=== PATIENT | female | born 1950 | race Caucasian/White ===

== ENCOUNTER → 2019-07-22 | Outpatient (CLI) | payer MEDICARE ==
[~2019-07-22] MED LIST: BARIUM for suspension 96% w/w (Vanilla Silq Medium Density) PO ONE; BARIUM for suspension 98% w/w (Vanilla Silq High Density) PO ONE; HOLD METFORMIN - RECEIVED CONTRAST 20 ML VIAL IV SCH; IOHEXOL 350 MG/ML 100 ML (OMNIPAQUE 350) VIAL IV ONE; NS 100 ML (IVPB) BAG IV ONE
[2019-07-22 07:55] LABS: CREATININE SERUM 0.81 MG/DL (0.60-1.30); GFR ESTIMATED > 60
[2019-07-22 07:56] LABS: BUN/CREATININE RATIO 27
--- NOTE | 2019-07-22 09:08 | Diagnostic Imaging Report ---
CLINICAL INDICATION: For 2 years, the patient has felt like something is in throat. Dysphagia. EXAM: Axial CT scan of the neck soft tissues was performed with 75 mL of Omnipaque 350 IV contrast. Coronal and sagittal reformatted images were created. Auto Exposure Controls were utilized during the CT exam to meet ALARA standards for radiation dose reduction. COMPARISON: None. FINDINGS: There is an area of soft tissue fullness in the right vallecular region which may represent prominent posterior lingual soft tissue. There is also a 2 mm area of focal calcification within the region. This area measures roughly 4 mm x 6 mm x 13 mm (AP x Trans x CC) and is best seen on axial series 2, image 45 and sagittal sequence series 602, image 34. It is noted that the bilateral cervical ICA extends posterior to the hypopharyngeal soft tissue and slightly impresses upon the right hypopharyngeal region. This is a normal anatomical variation. Otherwise, the nasopharynx, oropharynx, hypopharynx, and laryngeal soft tissue structures are unremarkable. There is no lymphadenopathy. The salivary glands and thyroid gland are unremarkable as visualized. There is no neck soft tissue fluid collection or fat stranding. The visualized portions of the oral cavity, tongue, and sublingual and submandibular regions are unremarkable. The visualized upper lung flores are clear. The visualized portions of the intracranial structures, orbits, and globes are unremarkable. The visualized paranasal sinuses and mastoid air cells are clear. There is multilevel cervical spine degenerative disease with hypertrophic vertebral body spurs and facet arthropathy as well as suggestion of diffuse disc bulge. There is severe right C4-C5 neural foramen narrowing. IMPRESSION: 1. There is a small area of soft tissue fullness in the right vallecular region which may represent prominent posterior lingual soft tissue. There is a focal calcification seen within this area. This is described above. There is no associated significant encroachment upon the aerodigestive tract. ENT consultation with direct visualization would better evaluate. 2. The remainder of the neck CT scan is unremarkable for patient's age. 3. There is multilevel cervical spine degenerative disease. Dictated by: Dictated on workstation # [id number]
--- NOTE | 2019-07-22 09:26 | Diagnostic Imaging Report ---
EXAMINATION: Barium swallow esophagram. INDICATION: Difficulty swallowing. COMPARISON: There are no prior studies available for comparison. TECHNIQUE: A double contrast exam was performed. FINDINGS: The patient swallowed the contrast material without difficulty. There was no delay or obstruction to the passage of barium through the esophagus. There was no mass or stricture identified; however, there was a small sliding hiatal hernia. Mild gastroesophageal reflux was noted on one occasion but there was no evidence for esophagitis. A cursory examination of the stomach showed that the stomach had good motility and distensibility. There was a small collection of barium along the superior margin of the gastric antrum. This could be related to an old epithelialized ulcer crater as there does not appear to be any thickening of the gastric rugae in this area to suggest active gastritis. If there is clinical concern regarding an active ulcer, however, then endoscopy would be recommended for further evaluation. The duodenal bulb and proximal small bowel are unremarkable. IMPRESSION: 1. There is a small sliding hiatal hernia with mild gastroesophageal reflux. There was no evidence for esophagitis. 2. There is no mass or stricture identified. 3. The small collection of barium along the superior margin of the gastric antrum is of uncertain etiology. Considerations and recommendations as above. Dictated by: Dictated on workstation # [id number]
== END ==
LOC: RAD 07:18
PROVIDERS: ATTEND Otolaryngology Otolaryngology/Facial Plastic Surgery
DX: R13.10 Dysphagia, unspecified (principal); K44.9 Diaphragmatic hernia without obstruction or gangrene; K21.9 Gastro-esophageal reflux disease without esophagitis; M50.321 Other cervical disc degeneration at C4-C5 level
CPT/HCPCS: 36415; 70491; 74220; 82565; 84520

== ENCOUNTER 2019-10-23 05:37 | Outpatient (RCR) | payer MEDICARE ==
[~2019-10-23] VITALS: Ht 160 cm; Wt 109.0 kg
[~2019-10-23 05:37] MED LIST changes: -BARIUM for suspension 96% w/w (Vanilla Silq Medium Density) PO ONE; -BARIUM for suspension 98% w/w (Vanilla Silq High Density) PO ONE; -HOLD METFORMIN - RECEIVED CONTRAST 20 ML VIAL IV SCH; +HYDR12.56 PO; -IOHEXOL 350 MG/ML 100 ML (OMNIPAQUE 350) VIAL IV ONE; +LEVO50TA6 PO; -NS 100 ML (IVPB) BAG IV ONE; +PARO40TA PO
[2019-10-27] MEDS ORDERED: PANT40TA2 PO (10:08)
== END 2019-10-23 10:37 | disposition home or self-care (01) ==
LOC: PREOP 05:37
PROVIDERS: ATTEND Surgery
DX: Z01.818 Encounter for other preprocedural examination (principal); Z01.812 Encounter for preprocedural laboratory examination; Z12.11 Encounter for screening for malignant neoplasm of colon; K63.5 Polyp of colon; R13.10 Dysphagia, unspecified; Z20.828 Contact with and (suspected) exposure to other viral communicable diseases
CPT/HCPCS: 87635

== ENCOUNTER 2019-12-01 14:27 | Outpatient (RCR) | payer MEDICARE ==
[~2019-12-01 14:27] MED LIST changes: +PANT40TA2 PO
== END 2020-02-29 | disposition home or self-care (01) ==
LOC: LAB 14:27
PROVIDERS: ATTEND Surgery
DX: B96.81 Helicobacter pylori [H. pylori] as the cause of diseases classified elsewhere (principal)
CPT/HCPCS: 36415; 87338

== ENCOUNTER 2021-03-06 10:19 | Outpatient (CLI) | payer MEDICARE ==
[~2021-03-06] VITALS: Ht 160 cm; Wt 122.0 kg
[2021-03-06 10:45] VITALS: BP 143/71
[2021-03-06] MEDS ORDERED: BAMLANIVIMAB 700 MG/ETESEVIMAB 1,400 MG IN NS IV ONE ×3 (11:00)
[2021-03-06] MEDS ORDERED: ACETAMINOPHEN 500 MG TAB (TYLENOL) PO PRN (11:00)
[2021-03-06] MEDS ORDERED: ONDANSETRON 4 MG/2 ML (SDV) Z0FRAN IV PRN (11:00)
[2021-03-06] MEDS ORDERED: EPINEPHrine INJECTION 1 MG/ML AMP IM PRN (11:00)
[2021-03-06] MEDS ORDERED: diphenhydrAMINE 50 MG/ML INJ (BENADRYL) IV PRN (11:00)
[2021-03-06 12:24] VITALS: BP 142/57
== END 2021-03-06 12:25 | disposition home or self-care (01) ==
LOC: INFUSION 10:19
PROVIDERS: ATTEND Registered Nurse
DX: U07.1 COVID-19 (principal)

== ENCOUNTER 2021-03-08 12:37 | Inpatient (IN) | payer MEDICARE ==
[~2021-03-08] VITALS: Ht 160 cm; Wt 122.0 kg
--- NOTE | 2021-03-08 12:48 | ED General ---
General Chief Complaint: Dizziness/Syncope Stated Complaint: SYNCOPAL EPISODE Source of Information: Patient, EMS History of Present Illness Date Seen by Provider: Mar 08, 2021 Time Seen by Provider: 12:44 Initial Comments 70-year-old female presenting with complaint of syncopal episode at home. She has been sick for almost 2 weeks and tested positive for Covid last Saturday. She had antibody infusion done to try and help with her Covid infection. She was told today she should be cleared from [facility]. She had a hot flushed feeling at home and nausea followed by feeling like she was going to pass out. She r eports that her told her that she did pass out when she was shaking like she was seizing. The EMS was activated and called. When they arrived she was alert and oriented. She felt like she was back to normal. However since she had that episode she did go ahead and have her family drive her here to the ED to be evaluated. She denies any chest pain. She has had no diarrhea or vomiting. The nausea is much better. Associated Systoms: No Chest Pain; Cough; No Diaphoresis, No Fever/Chills; Loss of Appetite, Malaise, Nausea/Vomiting (Nausea when the event happened but no vomiting), Shortness of Air, Syncope, Weakness (Generalized) Allergies and Home Medications Allergies Coded Allergies: No Known Drug Allergies (Unverified , 10/20/19) Patient Home Medication List Home Medication List Reviewed: Yes Hydrochlorothiazide (Hydrochlorothiazide) 12.5 Mg Tablet, 12.5 MG PO DAILY, (Reported) Entered as Reported by: SHIRA RAMSAY on 10/20/19 1138 Levothyroxine Sodium (Levothyroxine Sodium) 50 Mcg Tablet, 50 MCG PO DAILY, (Reported) Entered as Reported by: SHIRA RAMSAY on 10/20/19 1138 Pantoprazole Sodium (Protonix) 40 Mg Tablet.dr, 40 MG PO DAILY Prescribed by: ELI ROGERS on 10/27/19 1008 Paroxetine HCl (Paxil) 40 Mg Tablet, 40 MG PO DAILY, (Reported) Entered as Reported by: SHIRA RAMSAY on 10/20/19 1138 Review of Systems Review of Systems Constitutional: No chills, No fever; malaise EENTM: nose congestion Respiratory: cough, short of breath Cardiovascular: No chest pain; edema (Chronic edema but no worse than usual) Gastrointestinal: No abdominal pain; nausea; No vomiting Genitourinary: No dysuria, No frequency Musculoskeletal: No back pain Skin: No change in color Psychiatric/Neurological: Anxiety Hematologic/Lymphatic: Denies Blood Clots Past Ezcuxlm-Xzsmll-Bwtwhx Hx Seasonal Allergies Seasonal Allergies: Yes (MILD) Past Medical History Surgery/Hospitalization HX: Covid Infection Feb 2021 Surgeries: Yes (KIDNEY STONE REMOVAL, BILAT KNEE'S, ACHILLES TENDON, BREAST CYST) Appendectomy, Gallbladder, Tonsillectomy, Tubal Ligation Respiratory: No Cardiac: Yes Hypertension Neurological: No Sexually Transmitted Disease: No HIV/AIDS: No Genitourinary: Yes Bladder Infection, Kidney Stones, UTI-Chronic Gastrointestinal: Yes Gastroesophageal Reflux Musculoskeletal: Yes Arthritis, Chronic Back Pain Endocrine: Yes Hypothyroidsim HEENT: Yes (GLASSES) Loss of Vision: Denies Hearing Impairment: Denies Cancer: No Psychosocial: Yes Depression Integumentary: No Blood Disorders: No Adverse Reaction/Blood Tranf: No (N/A) Physical Exam Vital Signs Vital Signs - First Documented 03/08/21 13:01 Temp 35.8 Pulse 82 Resp 20 B/P (MAP) 136/68 (90) Pulse Ox 95 O2 Delivery Room Air Capillary Refill : Height, Weight, BMI Height: '" Weight: lbs. oz. kg; 42.57 BMI Method: General Appearance: No Apparent Distress, Obese HEENT: PERRL/EOMI, Pharynx Normal Neck: Full Range of Motion, Normal Inspection, Non Tender, Supple Respiratory: Chest Non Tender, Lungs Clear, Normal Breath Sounds, No Accessory Muscle Use, No Respiratory Distress Cardiovascular: Regular Rate, Rhythm, No Murmur, Normal Peripheral Pulses Gastrointestinal: Normal Bowel Sounds, No Pulsatile Mass, Non Tender, Soft Rectal: Deferred Back: No CVA Tenderness, No Vertebral Tenderness Extremity: Normal Capillary Refill, Normal Inspection, Pedal Edema (trace to 1+) Neurologic/Psychiatric: Alert, Oriented x3, No Motor/Sensory Deficits, regional sales consultant II- XII Norm as Tested Skin: Normal Color, Warm/Dry Focused Exam Lactate Level 03/08/21 12:58: Lactic Acid Level 1.01 Lactic Acid Level Laboratory Tests Test 03/08/21 12:58 Lactic Acid Level 1.01 MMOL/L (0.50-2.00) Progress/Results/Core Measures Suspected Sepsis SIRS Temperature: Pulse: Respiratory Rate: Laboratory Tests 03/08/21 12:58: White Blood Count 5.8 Blood Pressure / Mean: 03/08/21 12:58: Lactic Acid Level 1.01 Laboratory Tests 03/08/21 12:58: Creatinine 1.11, INR Comment 0.9, Platelet Count 154, Total Bilirubin 0.4 Results/Orders Lab Results Laboratory Tests Test 03/08/21 12:58 03/08/21 13:03 Range/Units White Blood Count 5.8 4.3-11.0 10^3/uL Red Blood Count 4.72 3.80-5.11 10^6/uL Hemoglobin 14.4 11.5-16.0 g/dL Hematocrit 43 35-52 % Mean Corpuscular Volume 91 80-99 fL Mean Corpuscular Hemoglobin 31 25-34 pg Mean Corpuscular Hemoglobin Concent 34 32-36 g/dL Red Cell Distribution Width 14.6 H 10.0-14.5 % Platelet Count 154 130-400 10^3/uL Mean Platelet Volume 12.7 H 9.0-12.2 fL Immature Granulocyte % (Auto) 1 % Neutrophils (%) (Auto) 67 42-75 % Lymphocytes (%) (Auto) 21 12-44 % Monocytes (%) (Auto) 8 0-12 % Eosinophils (%) (Auto) 3 0-10 % Basophils (%) (Auto) 1 0-10 % Neutrophils # (Auto) 3.9 1.8-7.8 X 10^3 Lymphocytes # (Auto) 1.2 1.0-4.0 X 10^3 Monocytes # (Auto) 0.5 0.0-1.0 X 10^3 Eosinophils # (Auto) 0.2 0.0-0.3 10^3/uL Basophils # (Auto) 0.0 0.0-0.1 10^3/uL Immature Granulocyte # (Auto) 0.0 0.0-0.1 10^3/uL Prothrombin Time 12.7 12.2-14.7 SEC INR Comment 0.9 0.8-1.4 Activated Partial Thromboplast Time 29 24-35 SEC D-Dimer 0.69 H 0.00-0.49 UG/ML Sodium Level 139 135-145 MMOL/L Potassium Level 3.6 3.6-5.0 MMOL/L Chloride Level 103 98-107 MMOL/L Carbon Dioxide Level 21 21-32 MMOL/L Anion Gap 15 H 5-14 MMOL/L Blood Urea Nitrogen 23 H 7-18 MG/DL Creatinine 1.11 0.60-1.30 MG/DL Estimat Glomerular Filtration Rate 49 BUN/Creatinine Ratio 21 Glucose Level 121 H 70-105 MG/DL Lactic Acid Level 1.01 0.50-2.00 MMOL/L Calcium Level 9.0 8.5-10.1 MG/DL Corrected Calcium 9.2 8.5-10.1 MG/DL Total Bilirubin 0.4 0.1-1.0 MG/DL Aspartate Amino Transf (AST/SGOT) 63 H 5-34 U/L Alanine Aminotransferase (ALT/SGPT) 45 0-55 U/L Alkaline Phosphatase 290 H 40-136 U/L Troponin I 1.17 *H <0.30 NG/ML C-Reactive Protein 6.40 H <0.50 MG/DL Pro-B-Type Natriuretic Peptide 28.5 <75.0 PG/ML Total Protein 8.0 6.4-8.2 GM/DL Albumin 3.8 3.2-4.5 GM/DL Urine Color YELLOW Urine Clarity SL CLOUDY Urine pH 6.0 5-9 Urine Specific Huffman 1.020 1.016-1.022 Urine Protein TRACE H NEGATIVE Urine Glucose (UA) NEGATIVE NEGATIVE Urine Ketones TRACE H NEGATIVE Urine Nitrite POSITIVE H NEGATIVE Urine Bilirubin NEGATIVE NEGATIVE Urine Urobilinogen 0.2 < = 1.0 MG/DL Urine Leukocyte Esterase TRACE H NEGATIVE Urine RBC (Auto) 2+ H NEGATIVE Urine RBC 2-5 H /HPF Urine WBC 5-10 H /HPF Urine Squamous Epithelial Cells 0-2 /HPF Urine Crystals NONE /LPF Urine Bacteria LARGE H /HPF Urine Casts NONE /LPF Urine Mucus NEGATIVE /LPF Urine Culture Indicated YES My Orders Orders - CAMELIA DURAN MD Monitor-Rhythm Ecg Trace Only (03/08/21 13:03) Ed Iv/Invasive Line Start (03/08/21 13:03) Cbc With Automated Diff (03/08/21 13:03) Comprehensive Metabolic Panel (03/08/21 13:03) Crp Fs (03/08/21 13:03) Troponin I Fs (03/08/21 13:03) Protime With Inr (03/08/21 13:03) Partial Thromboplastin Time (03/08/21 13:03) Ekg Tracing (03/08/21 13:03) Ns Iv 1000 Ml (Sodium Chloride 0.9%) (03/08/21 13:15) Blood Culture (03/08/21 13:03) Ua Culture If Indicated (03/08/21 13:03) Probnp Fs (03/08/21 13:03) Lactic Acid Analyzer (03/08/21 13:03) Ct Angio Chest W (03/08/21 13:03) Ct Head Wo (03/08/21 13:03) Iohexol Injection (Omnipaque 350 Mg/Ml 1 (03/08/21 14:00) Received Contrast (Hold Metformin- Contr (03/08/21 14:00) Ns (Ivpb) (Sodium Chloride 0.9% Ivpb Bag (03/08/21 14:00) Enoxaparin Injection (Lovenox Injection) (03/08/21 14:17) Aspirin Chewable Tablet (Baby Aspirin Ch (03/08/21 14:17) Fibrin Degradation Products (03/08/21 14:17) Ed Admission (Communication) (03/08/21 14:21) Urine Culture (03/08/21 13:03) Enoxaparin Injection (Lovenox Injection) (03/08/21 14:53) Medications Given in ED Current Medications Medications Dose Ordered Sig/Jp Route Start Time Stop Time Status Last Admin Dose Admin Iohexol 100 ml ONCE ONCE IV 03/08/21 14:00 03/08/21 14:01 DC 03/08/21 14:16 100 ML Sodium Chloride 100 ml ONCE ONCE IV 03/08/21 14:00 03/08/21 14:01 DC 03/08/21 14:16 100 ML Vital Signs/I&O 03/08/21 03/08/21 13:01 15:38 Temp 35.8 36.4 Pulse 82 80 Resp 20 20 B/P (MAP) 136/68 (90) 149/73 Pulse Ox 95 96 O2 Delivery Room Air Room Air Capillary Refill : Progress Note #1: Progress Note With her recent Covid infection and report of syncopal episode will obtain labs as well as blood cultures, lactic acid, cardiac enzymes, electrocardiogram, CT of her head to evaluate for possible stroke or acute intracranial abnormality, CT of her chest with angiography to evaluate for heart failure or pulmonary embolism her continued infiltrate. Her oxygen saturation is 95 to 98% on room air. We will give IV fluids for hydration while waiting on testing to come back. Progress Note #2: Progress Note Electrocardiogram shows sinus rhythm without ST elevation. Her labs were stable without showing anemia or elevation of the lactic acid. Her creatinine was mildly elevated at 1.11. Progress Note #3: Progress Note As patient was going over for CT scans her chemistry panel finished coming acro ss and showed a elevated troponin of 1.17. Based off of this it appears that she was having a non-STEMI since there was no ST elevation on her EKG. Awaiting CT of her head without contrast and the CT angiography of her chest. At 1409 I have placed a call to Dr. Gill with cardiology and she recommended aspirin and Lovenox for the findings of elevated troponin non-STEMI. Pending the CT scan findings she may need additional medications or treatment. [address] Ferguson for the [facility] service and she accepted patient for admission for the elevated troponin and non-STEMI with the cardiology consult. She will place Queued orders for the patient. Progress Note #4: Progress Note CT scan of the head did not show any acute process. The CT scan of the chest showed diffuse interstitial infiltrates consistent with Covid pneumonia but no pulmonary embolism or effusion. Continue with admission as planned ECG Initial ECG Impression Date: Mar 08, 2021 Initial ECG Impression Time: 12:49 Initial ECG Rate: 84 Initial ECG Rhythm: Normal Sinus Initial ECG Comparisson: No Previous ECG Available Comment Normal sinus rhythm with heart rate of 84 bpm. WA interval [address] elevation. QT interval 389 ms with a QTc interval 460 ms. There is no prior tracing available for comparison. Diagnostic Imaging Diagonstic Imaging: CT Plain Films/CT/US/NM/MRI: head Comments [facility], [place] NAME: CHONG HAWKINS [facility] REC#: [id number] PT STATUS: REG ER : 1950 PHYSICIAN: CAMELIA DURAN MD ADMIT DATE: 03/08/21/ER FS Signed Date of Exam:03/08/21 CT HEAD WO PROCEDURE: CT head without contrast. TECHNIQUE: Multiple contiguous axial images were obtained through the brain without the use of intravenous contrast. Auto Exposure Controls were utilized during the CT exam to meet ALARA standards for radiation dose reduction. INDICATION: Syncope and COVID-19 positive. COMPARISON: No prior studies are available for comparison. FINDINGS: The ventricles and sulci are within normal limits. No sulcal effacement or midline shift is identified. No acute intra-axial or extra-axial hemorrhage is detected. Cisterns are patent. Visualized paranasal sinuses are clear. IMPRESSION: No acute intracranial process is detected. Dictated by: Dictated on workstation # [id number] Dict: 03/08/21 1424 Trans: 03/08/21 1522 [id number] Interpreted by: LAVERN BURNHAM MD Electronically signed by: LAVERN BURNHAM MD 03/08/21 1522 Reviewed: Reviewed by Me Diagonstic Imaging: CT Plain Films/CT/US/NM/MRI: chest Comments [facility] [place] NAME: CHONG HAWKINS [facility] REC#: [id number] PT STATUS: REG ER : 1950 PHYSICIAN: CAMELIA DURAN MD ADMIT DATE: 03/08/21/ER FS Signed Date of Exam:03/08/21 CT ANGIO CHEST W PROCEDURE: CT angiography of the chest with contrast. TECHNIQUE: Multiple contiguous axial images were obtained through the chest after uneventful bolus administration of intravenous contrast. 3D reconstructed CTA MIP acquisitions were also performed. Auto Exposure Controls were utilized during the CT exam to meet ALARA standards for radiation dose reduction. INDICATION: Syncope and shortness of breath with COVID-19 positivity. COMPARISON: No prior studies are available for comparison. FINDINGS: Evaluation of the pulmonary arterial system is without evidence of thromboembolism. No definite filling defects are seen within central, lobar, or segmental branches. The thoracic aorta is normal in caliber. No dissection is seen. There is no pericardial or pleural fluid. No axillary lymphadenopathy is identified. There are some prominent lymph nodes in the mediastinum. There are some calcified nodes in the subcarinal region consistent with prior granulomatous exposure. Lungs do demonstrate patchy airspace and ground-glass infiltrates involving bilateral upper lobes and bilateral lower lobes consistent with COVID-19 pneumonia. Upper abdomen is unremarkable. IMPRESSION: 1. No evidence of pulmonary embolism or acute aortic disease. 2. Patchy bilateral airspace and ground-glass pulmonary infiltrates consistent with COVID-19 pneumonia. 3. Prominent lymph nodes in the mediastinum, perhaps owing to prior granulomatous exposure. Dictated by: Dictated on workstation # [id number] Dict: 03/08/21 1425 Trans: 03/08/21 1521 [id number] Interpreted by: LAVERN BURNHAM MD Electronically signed by: LAVERN BURNHAM MD 03/08/21 1521 Reviewed: Reviewed by Me Departure Communication (Admissions) Time/Spoke to Admitting Phy: 14:[address] Ferguson and she accepted patient for [facility] service. Discussed with Dr. Gill from a cardiology standpoint since patient had elevated troponin and he will follow along for the non-STEMI and elevated troponin. Time/Spoke to Consulting Phy: 14:[address] Gill for cardiology and he suggested using aspirin and Lovenox for the elevated troponin and non-STEMI. He will follow and consult with the patient on the [facility] service. Impression Primary Impression: Non-ST elevated myocardial infarction Additional Impressions: Elevated troponin I level Syncope and collapse Lower respiratory tract infection due to COVID-19 virus Disposition: 30 STILL A PATIENT Condition: Critical Admissions Decision to Admit Reason: Admit from ER (General) Decision to Admit/Date: Mar 08, 2021 Time/Decision to Admit Time: 14:16 Departure-Patient Inst. Referrals: AILYN MCGINNIS MD (PCP/Family) Primary Care Physician CAMELIA DURAN MD Mar 08, 2021 12:48
[2021-03-08] MEDS ORDERED: NS IV 1000 ML 1,000 ML IV SCH (13:15)
[2021-03-08 13:31] LABS: HEMATOCRIT 43 % (35-52); HEMOGLOBIN 14.4 g/dL (11.5-16.0); MEAN CORPUSCULAR HEMOGLOBIN 31 pg (25-34); MEAN CORPUSCULAR HGB CONC 34 g/dL (32-36); MEAN CORPUSCULAR VOLUME 91 fL (80-99); MEAN PLATELET VOLUME 12.7 fL (9.0-12.2); PLATELET COUNT 154 10^3/uL (130-400); WHITE BLOOD COUNT 5.8 10^3/uL (4.3-11.0)
[2021-03-08 13:32] LABS: BASOPHILS % (AUTO) 1 % (0-10); EOSINOPHILS # (AUTO) 0.2 10^3/uL (0.0-0.3); EOSINOPHILS % (AUTO) 3 % (0-10); LYMPHOCYTES # (AUTO) 1.2 X 10^3 (1.0-4.0); LYMPHOCYTES % (AUTO) 21 % (12-44); MONOCYTES # (AUTO) 0.5 X 10^3 (0.0-1.0); MONOCYTES % (AUTO) 8 % (0-12); NEUTROPHILS # (AUTO) 3.9 X 10^3 (1.8-7.8); NEUTROPHILS % (AUTO) 67 % (42-75)
[2021-03-08 13:35] LABS: INR 0.9 (0.8-1.4); PROTHROMBIN TIME PATIENT 12.7 SEC (12.2-14.7)
[2021-03-08 13:52] LABS: BILIRUBIN,TOTAL 0.4 MG/DL (0.1-1.0); CREATININE SERUM 1.11 MG/DL (0.60-1.30); POTASSIUM 3.6 MMOL/L (3.6-5.0)
[2021-03-08 13:55] LABS: ALBUMIN 3.8 GM/DL (3.2-4.5)
[2021-03-08] MEDS ORDERED: IOHEXOL 350 MG/ML 100 ML (OMNIPAQUE 350) VIAL IV ONE (14:00)
[2021-03-08] MEDS ORDERED: HOLD METFORMIN - RECEIVED CONTRAST 20 ML VIAL IV SCH (14:00)
[2021-03-08] MEDS ORDERED: NS 100 ML (IVPB) BAG IV ONE (14:00)
[2021-03-08] MEDS ORDERED: ENOXAPARIN 60 MG/0.6 ML (LOVENOX) SYR SC STA (14:17)
[2021-03-08] MEDS ORDERED: ASPIRIN 81 MG CHEW (CHILDREN'S ASA) PO STA (14:17)
[2021-03-08 14:26] LABS: BILIRUBIN,URINE NEGATIVE (NEGATIVE); CLARITY,URINE SL CLOUDY; COLOR,URINE YELLOW; GLUCOSE, URINE (UA) NEGATIVE (NEGATIVE); KETONES,URINE TRACE (NEGATIVE); LEUKOCYTE ESTERASE ,URINE TRACE (NEGATIVE); NITRITE,URINE POSITIVE (NEGATIVE); PROTEIN,URINE TRACE (NEGATIVE)
--- NOTE | 2021-03-08 14:27 | Diagnostic Imaging Report ---
PROCEDURE: CT head without contrast. TECHNIQUE: Multiple contiguous axial images were obtained through the brain without the use of intravenous contrast. Auto Exposure Controls were utilized during the CT exam to meet ALARA standards for radiation dose reduction. INDICATION: Syncope and COVID-19 positive. COMPARISON: No prior studies are available for comparison. FINDINGS: The ventricles and sulci are within normal limits. No sulcal effacement or midline shift is identified. No acute intra-axial or extra-axial hemorrhage is detected. Cisterns are patent. Visualized paranasal sinuses are clear. IMPRESSION: No acute intracranial process is detected. Dictated by: Dictated on workstation # [id number]
--- NOTE | 2021-03-08 14:31 | Diagnostic Imaging Report ---
PROCEDURE: CT angiography of the chest with contrast. TECHNIQUE: Multiple contiguous axial images were obtained through the chest after uneventful bolus administration of intravenous contrast. 3D reconstructed CTA MIP acquisitions were also performed. Auto Exposure Controls were utilized during the CT exam to meet ALARA standards for radiation dose reduction. INDICATION: Syncope and shortness of breath with COVID-19 positivity. COMPARISON: No prior studies are available for comparison. FINDINGS: Evaluation of the pulmonary arterial system is without evidence of thromboembolism. No definite filling defects are seen within central, lobar, or segmental branches. The thoracic aorta is normal in caliber. No dissection is seen. There is no pericardial or pleural fluid. No axillary lymphadenopathy is identified. There are some prominent lymph nodes in the mediastinum. There are some calcified nodes in the subcarinal region consistent with prior granulomatous exposure. Lungs do demonstrate patchy airspace and ground-glass infiltrates involving bilateral upper lobes and bilateral lower lobes consistent with COVID-19 pneumonia. Upper abdomen is unremarkable. IMPRESSION: 1. No evidence of pulmonary embolism or acute aortic disease. 2. Patchy bilateral airspace and ground-glass pulmonary infiltrates consistent with COVID-19 pneumonia. 3. Prominent lymph nodes in the mediastinum, perhaps owing to prior granulomatous exposure. Dictated by: Dictated on workstation # [id number]
[2021-03-08 14:32] LABS: BACTERIA,URINE LARGE /HPF; SQUAMOUS EPITHELIAL CELL,UR 0-2 /HPF
[2021-03-08] MEDS ORDERED: ENOXAPARIN 60 MG/0.6 ML (LOVENOX) SYR ONE (14:53)
[2021-03-08 16:45] VITALS: BP 158/78
[2021-03-08] MEDS ORDERED: NITROGLYCERIN 0.4 MG SL TABS BTL 25'S SL PRN (17:15)
[2021-03-08] MEDS ORDERED: diphenhydrAMINE 25 MG TAB (BENADRYL) PO PRN (17:15)
[2021-03-08] MEDS ORDERED: morphine INJ 10 MG/ML 1ML (SYR OR VIAL) IVP PRN (17:15)
[2021-03-08] MEDS ORDERED: LORazepam INJ 2 MG/ML (ATIVAN) VIAL IVP PRN (17:15)
[2021-03-08] MEDS ORDERED: ACETAMINOPHEN 325 MG TABLET PO PRN (17:15)
[2021-03-08] MEDS ORDERED: ENOXAPARIN 100 MG/1 ML (LOVENOX) SYR SC SCH (17:15)
[2021-03-08] MEDS ORDERED: morphine INJ 4 MG/ML 1 ML (VIAL/SYRINGE) IV PRN (17:30)
[2021-03-08] MEDS: NS IV 1000 ML 1,000 ML IV SCH (17:58)
[2021-03-08] MEDS ORDERED: ENOXAPARIN 300 MG/3 ML (LOVENOX) MULTI-DOSE VIAL SQ SCH (18:00)
[2021-03-08 19:31] VITALS: BP 144/74
[2021-03-08 19:32] VITALS: BP 20/149
[2021-03-08] MEDS ORDERED: RT-ALBUTEROL HFA 8.5 GM INHALER IH PRN (19:45)
--- NOTE | 2021-03-08 20:08 | History & Physical-Hospitalist ---
History of Present Illness HPI/Chief Complaint CC: Syncopal episode HPI: This is a [facility] patient who presented to the [place] ER with a syncopal episode. She was diagnosed with Covid, received the antibody infusion, she had otherwise done well and was not hypoxic, labs remained stable in the ER but elevated Troponin of 1.1 diagnosed with non-ST elevation [place] and needs cardiac risk stratification by Dr. Gill. She has been placed on Lovenox and Aspirin. Source: patient Exam Limitations: no limitations Date Seen 03/08/21 Time Seen by a Provider: 16:00 Attending Physician Tiarra Ferguson DO PCP Self,Cain VILLAFUERTE Referring Physician Date of Admission Mar 08, 2021 at 16:25 Home Medications & Allergies Home Medications Reviewed patient Home Medication Reconciliation performed by pharmacy medication reconciliations weed science research technician and/or nursing. Patients Allergies have been reviewed. Allergies Allergies Coded Allergies No Known Drug Allergies (Unverified10/20/19) Past Kzfjddm-Vpvpbc-Votcjw Hx Patient Social History Marrital Status: Employed/Student: retired Tobacco Use?: No Smoking Status: Former Smoker Smokeless Tobacco Frequency: Never a User Use of E-Cig and/or Vaping dev: No Substance use?: No Alcohol Use?: No Pt feels they are or have been: No Immunizations Up To Date Date of Influenza Vaccine: Dec 22, 2018 First/Initial COVID19 Vaccinat: DECLINED Second COVID19 Vaccination Sudarshan: DECLINED Tetanus Booster (TDap): More Than 5 Years Hepatitis A: No Hepatitis B: No Seasonal Allergies Seasonal Allergies: Yes (MILD) Current Status status: No Advance Directives: No Communicates: Verbally Primary Language: Albanian Preferred Spoken Language: Albanian Is interpretation needed?: No Sensory deficits: Vision impairment Implanted or Applied Medical D: Orthopedic hardware Past Medical History Surgeries: Appendectomy, Gallbladder, Tonsillectomy, Tubal Ligation Hypertension Sexually Transmitted Disease: No HIV/AIDS: No Bladder Infection, Kidney Stones, UTI-Chronic Gastroesophageal Reflux Arthritis, Chronic Back Pain Hypothyroidsim Loss of Vision: Denies Hearing Impairment: Denies Depression Blood Disorders: No Adverse Reaction/Blood Tranf: No (N/A) Review of Systems Constitutional: see HPI, dizziness EENTM: no symptoms reported Respiratory: no symptoms reported Cardiovascular: no symptoms reported Gastrointestinal: no symptoms reported Genitourinary: no symptoms reported Musculoskeletal: no symptoms reported Skin: no symptoms reported All Other Systems Reviewed Negative Unless Noted: Yes Physical Exam Physical Exam Vital Signs Vital Signs - First Documented 03/08/21 13:01 Temp 35.8 Pulse 82 Resp 20 B/P (MAP) 136/68 (90) Pulse Ox 95 O2 Delivery Room Air Capillary Refill : Less Than 3 Seconds Height, Weight, BMI Height: '" Weight: lbs. oz. kg; 47.65 BMI Method: General Appearance: No Apparent Distress, Chronically ill, Obese Eyes: Right Eye Normal Inspection, Right Eye PERRL HEENT: PERRL/EOMI, Normal ENT Inspection, Pharynx Normal, Moist Mucous Membranes Neck: Full Range of Motion, Normal Inspection, Non Tender Respiratory: Chest Non Tender, Lungs Clear, Normal Breath Sounds, No Accessory Muscle Use, No Respiratory Distress Cardiovascular: Regular Rate, Rhythm, No Edema, No Gallop, No JVD, No Murmur, Normal Peripheral Pulses Gastrointestinal: Normal Bowel Sounds, No Organomegaly, No Pulsatile Mass, Non Tender, Soft Back: Normal Inspection, No CVA Tenderness, No Vertebral Tenderness Extremity: Normal Capillary Refill, Normal Inspection, Normal Range of Motion, Non Tender, No Calf Tenderness, No Pedal Edema Neurologic/Psychiatric: Alert, Oriented x3, No Motor/Sensory Deficits, Normal Mood/Affect Skin: Normal Color, Warm/Dry Lymphatic: No Adenopathy Results Results/Procedures Labs Laboratory Tests 03/08/21 12:58 Patient resulted labs reviewed. Assessment/Plan Admission Diagnosis Assessment: Syncope Recent COVID-19 status post antibiotic infusion Non-ST elevation [place] Elevated BMI 47 Hypertension Plan: Supportive care Cardiology consultation Lovenox Aspirin Check lipid and a.m. Admission Status: Inpatient Order (span 2 midnights) Reason for Inpatient Admission: Non-STEMI Diagnosis/Problems Diagnosis/Problems (1) Non-ST elevated myocardial infarction Status: Acute (2) Elevated troponin I level Status: Acute (3) Syncope and collapse Status: Acute (4) Lower respiratory tract infection due to COVID-19 virus Status: Acute TIARRA FERGUSON DO Mar 08, 2021 20:08
[2021-03-08] MEDS: RT-ALBUTEROL HFA 8.5 GM INHALER IH SCH (21:28)
[2021-03-09] VITALS: BP 130/70
[2021-03-09 03:50] VITALS: BP 155/77
[2021-03-09] MEDS: ENOXAPARIN 300 MG/3 ML (LOVENOX) MULTI-DOSE VIAL SQ SCH ×2 (03:51→17:14)
[2021-03-09 06:36] LABS: BASOPHILS % (AUTO) 0 % (0-10); EOSINOPHILS % (AUTO) 0 % (0-10); HEMATOCRIT 40 % (35-52); HEMOGLOBIN 13.1 g/dL (11.5-16.0); LYMPHOCYTES # (AUTO) 1.3 10^3/uL (1.0-4.0); LYMPHOCYTES % (AUTO) 23 % (12-44); MEAN CORPUSCULAR HEMOGLOBIN 30 pg (25-34); MEAN CORPUSCULAR HGB CONC 33 g/dL (32-36); MEAN CORPUSCULAR VOLUME 91 fL (80-99); MEAN PLATELET VOLUME 11.9 fL (9.0-12.2); MONOCYTES # (AUTO) 0.6 10^3/uL (0.0-1.0); MONOCYTES % (AUTO) 10 % (0-12); NEUTROPHILS % (AUTO) 67 % (42-75); PLATELET COUNT 148 10^3/uL (130-400)
[2021-03-09 07:05] LABS: ALBUMIN 3.4 GM/DL (3.2-4.5); BILIRUBIN,TOTAL 0.4 MG/DL (0.1-1.0); CALCIUM 8.3 MG/DL (8.5-10.1); CREATININE SERUM 0.85 MG/DL (0.60-1.30); POTASSIUM 3.2 MMOL/L (3.6-5.0)
[2021-03-09] MEDS ORDERED: REGADENOSON 0.4 MG/5 ML SYR (LEXISCAN) IV ONE ×2 (07:30→12:44)
[2021-03-09] MEDS: RT-ALBUTEROL HFA 8.5 GM INHALER IH SCH (07:39)
[2021-03-09 08:00] VITALS: BP 129/79
[2021-03-09] MEDS ORDERED: LEVO-130 PO (08:40)
[2021-03-09] MEDS ORDERED: IBUP-2185 PO (08:40)
[2021-03-09] MEDS ORDERED: GABA-486 PO (08:40)
[2021-03-09] MEDS ORDERED: ASPIRIN 81 MG CHEW (CHILDREN'S ASA) PO SCH (09:00)
--- NOTE | 2021-03-09 10:46 | Progress Note - Hospitalist ---
Subjective HPI/CC On Admission Date Seen by Provider: Mar 09, 2021 CC: Syncopal episode HPI: This is a [facility] patient who presented to the [place] ER with a syncopal episode. She was diagnosed with Covid, received the antibody infusion, she had otherwise done well and was not hypoxic, labs remained stable in the ER but elevated Troponin of 1.1 diagnosed with non-ST elevation [place] and needs cardiac risk stratification by Dr. Gill. She has been placed on Lovenox and Aspirin. Focused Exam Lactate Level 03/08/21 12:58: Lactic Acid Level 1.01 Objective Exam Vital Signs Vital Signs Date Time Temp Pulse Resp B/P (MAP) Pulse Ox O2 Delivery O2 Flow Rate FiO2 03/09/21 16:57 37.3 86 20 132/81 (98) 94 Room Air Capillary Refill : Less Than 3 Seconds Results/Procedures Lab Laboratory Tests 03/09/21 06:10 Patient resulted labs reviewed. Diagnosis/Problems Diagnosis/Problems (1) Non-ST elevated myocardial infarction Status: Acute (2) Elevated troponin I level Status: Acute (3) Syncope and collapse Status: Acute (4) Lower respiratory tract infection due to COVID-19 virus Status: Acute YVROSE MERCEDES DO Mar 09, 2021 10:46
[2021-03-09] MEDS: NS IV 1000 ML 1,000 ML IV SCH (10:53)
[2021-03-09 12:00] VITALS: BP 137/90
--- NOTE | 2021-03-09 15:45 | Consultation-Cardiology ---
HPI-Cardiology Cardiology Consultation: Date of Consultation 03/09/2021 Date of Admission 03/08/2021 Attending Physician Tiarra Ferguson DO Admitting Physician Cain Cooley MD Consulting Physician DANY BROCK JR, MD HPI: Time Seen by a Provider: 15:39 Chief Complaint: Reason for consultation: Syncope and abnormal troponin level. I had the pleasure of seeing Melissa in the cardiac stress laboratory at [facility] in [place], [place] this afternoon. She has no known history of coronary artery disease. She did have hypertension in the past but was able to come off medication. Yesterday she was in her usual state of health sitting at home and her dining room table and suddenly had a syncopal spell. She does not remember any premonitory warnings. Her was with her and he called 911. The patient ultimately came to. She was brought to [facility] emergency room and during her evaluation there, had a troponin level drawn which was found to be elevated. She was subsequently transferred to our facility for further evaluation. A follow-up troponin here was undetectable. She denies any previous history of syncope. She does not know of any family history of syncope or sudden . She denies chest discomfort. She was diagnosed with Covid infection about 10 days ago and was treated with infusion therapy. She has had some shortness of breath related to this illness. She denies paroxysmal nocturnal dyspnea, orthopnea, palpitations, lightheadedness, or lower extremity edema. She is not diabetic. She does not smoke cigarettes. Because of the elevated troponin level and syncope, a cardiology consultation was requested. Certain portions of this document may have been dictated utilizing voice willi gnition technology. Inherent to this technology, typographical and grammatical errors may exist. As much as I am diligent to identify and correct these mistakes, some errors may remain in the document. Review of Systems-Cardiology Review of Systems Other comments Review of 10 organ systems is as per the history of present illness, otherwise negative. All Other Systems Reviewed Negative Unless Noted: Yes [id number]-[id number] Hx Patient Social History Marrital Status: Employed/Student: retired Smoking Status: Former Smoker 2nd Hand Smoke Exposure: No Have you traveled recently?: No Alcohol Use?: No Pt feels they are or have been: No Immunizations Up To Date Date of Influenza Vaccine: Dec 22, 2018 Past Medical History PMH As described under Assessment. Family Medical History Family Medical History: The patient does not know of any family history of premature coronary artery disease in first-degree relatives. Allergies and Home Medications Allergies Coded Allergies: No Known Drug Allergies (Unverified , 10/20/19) Patient Home Medication List Home Medication List Reviewed: Yes Gabapentin (Gabapentin) 100 Mg Capsule, 100 MG PO TID, (Reported) Entered as Reported by: EDEN SONI on 03/09/21839 Last Action: Reviewed Hydrochlorothiazide (Hydrochlorothiazide) 12.5 Mg Tablet, 12.5 MG PO DAILY, (Reported) Entered as Reported by: SHIRA RAMSAY on 10/20/191137 Last Action: Reviewed Ibuprofen (Ibuprofen) 200 Mg Capsule, 600-800 MG PO Q8H PRN for PAIN-MILD (1-4), (Reported) Entered as Reported by: EDEN SONI on 03/09/21839 Last Action: Reviewed Levothyroxine Sodium (Euthyrox) 100 Mcg Tablet, 100 MCG PO DAILY, (Reported) Entered as Reported by: EDEN SONI on 03/09/21839 Last Action: Reviewed Discontinued Medications Levothyroxine Sodium (Levothyroxine Sodium) 50 Mcg Tablet, 50 MCG PO DAILY, (Reported) Discontinued Reason: Duplicate Order Entered as Reported by: SHIRA RAMSAY on 10/20/191137 Last Action: Discontinued Pantoprazole Sodium (Protonix) 40 Mg Tablet.dr, 40 MG PO DAILY Discontinued Reason: Duplicate Order Prescribed by: ELI ROGERS on 10/27/19 100 Last Action: Discontinued Paroxetine HCl (Paxil) 40 Mg Tablet, 40 MG PO DAILY, (Reported) Discontinued Reason: Duplicate Order Entered as Reported by: SHIRA RAMSAY on 10/20/191137 Last Action: Discontinued Exam Vital Signs Vital Signs Date Time Temp Pulse Resp B/P (MAP) Pulse Ox O2 Delivery O2 Flow Rate FiO2 03/09/21 16:57 37.3 86 20 132/81 (98) 94 Room Air Physical Exam General: She appears well-nourished and appears her stated age. She is obese. No acute distress. Eyes: Extraocular movements are intact. Sclera are clear. Neck: No obvious deformity. Neurologic: The patient is alert and oriented x3. Cranial nerves III through XII appear grossly intact. The patient appears to have good motor tone in the upper and lower extremities bilaterally. Psychologic: The patient is pleasant and has a normal affect. This was a limited exam done from the doorway due to the patient's Covid status. I did not actually get close enough to the patient to do a formal physical examination. Labs Laboratory Tests Test 03/08/21 19:08 03/09/21 06:10 Range/Units Troponin I < 0.028 <0.028 NG/ML White Blood Count 6.0 4.3-11.0 10^3/uL Red Blood Count 4.36 3.80-5.11 10^6/uL Hemoglobin 13.1 11.5-16.0 g/dL Hematocrit 40 35-52 % Mean Corpuscular Volume 91 80-99 fL Mean Corpuscular Hemoglobin 30 25-34 pg Mean Corpuscular Hemoglobin Concent 33 32-36 g/dL Red Cell Distribution Width 14.2 10.0-14.5 % Platelet Count 148 130-400 10^3/uL Mean Platelet Volume 11.9 9.0-12.2 fL Immature Granulocyte % (Auto) 0 % Neutrophils (%) (Auto) 67 42-75 % Lymphocytes (%) (Auto) 23 12-44 % Monocytes (%) (Auto) 10 0-12 % Eosinophils (%) (Auto) 0 0-10 % Basophils (%) (Auto) 0 0-10 % Neutrophils # (Auto) 4.0 1.8-7.8 10^3/uL Lymphocytes # (Auto) 1.3 1.0-4.0 10^3/uL Monocytes # (Auto) 0.6 0.0-1.0 10^3/uL Eosinophils # (Auto) 0.0 0.0-0.3 10^3/uL Basophils # (Auto) 0.0 0.0-0.1 10^3/uL Immature Granulocyte # (Auto) 0.0 0.0-0.1 10^3/uL Sodium Level 140 135-145 MMOL/L Potassium Level 3.2 L 3.6-5.0 MMOL/L Chloride Level 110 H 98-107 MMOL/L Carbon Dioxide Level 19 L 21-32 MMOL/L Anion Gap 11 5-14 MMOL/L Blood Urea Nitrogen 21 H 7-18 MG/DL Creatinine 0.85 0.60-1.30 MG/DL Estimat Glomerular Filtration Rate 67 BUN/Creatinine Ratio 25 Glucose Level 104 70-105 MG/DL Calcium Level 8.3 L 8.5-10.1 MG/DL Corrected Calcium 8.8 8.5-10.1 MG/DL Total Bilirubin 0.4 0.1-1.0 MG/DL Aspartate Amino Transf (AST/SGOT) 60 H 5-34 U/L Alanine Aminotransferase (ALT/SGPT) 47 0-55 U/L Alkaline Phosphatase 211 H 40-136 U/L Total Protein 7.0 6.4-8.2 GM/DL Albumin 3.4 3.2-4.5 GM/DL Triglycerides Level 85 <150 MG/DL Cholesterol Level 127 < 200 MG/DL LDL Cholesterol Direct 71 1-129 MG/DL VLDL Cholesterol 17 5-40 MG/DL HDL Cholesterol 37 L 40-60 MG/DL Radiology REGADENOSON NUCLEAR STRESS TEST (03/09/2021): 1. Normal heart rate and blood pressure response to regadenoson. 2. There was no chest discomfort, arrhythmias, or electrocardiogram changes during the test. 3. There was normal myocardial perfusion in all segments without evidence of infarction or ischemia. 4. There was normal wall motion in all segments with a calculated ejection fraction of 80%. ECHOCARDIOGRAM (03/09/2021): 1. Left ventricle: The cavity size is normal. Wall thickness is normal. Systolic function is normal. The estimated ejection fraction is 55-60%. There were no regional wall motion abnormalities identified. The left ventricular diastolic function is indeterminate. 2. Mitral valve: The annulus is mildly calcified. 3. Pulmonary arteries: The estimated pulmonary artery systolic pressure is 35 mmHg assuming a right atrial pressure of 5 mmHg. ECG Impression ECG Comment Electrocardiogram obtained at our facility at the time of admission on 03/08/2021 shows sinus rhythm with diffusely low voltage, otherwise unremarkable tracing. Diagnosis/Problems Diagnosis/Problems (1) Elevated troponin I level Status: Acute Assessment & Plan: Her troponin level at the outside facility was elevated but her troponin level done in our facility was undetectable. Our troponin assay here is slightly more sensitive and specific and given that this was undetectable, I suspect the value from the outside facility may have been a spurious result. I do not believe this represents an acute myocardial infarction. She was not having any anginal symptoms. Her stress test was normal. No additional cardiac testing is indicated for this mild laboratory abnormality at this time. (2) Syncope and collapse Status: Acute Assessment & Plan: Exact etiology unclear. This was unheralded. There is no evidence of Ytmps-Pdgotbctl-Zwpqo, Brugada syndrome, or prolonged or short QT on her resting electrocardiogram. Her ejection fraction is normal. Her stress test shows normal myocardial perfusion. There is no family history of syncope or sudden cardiac . We may need to consider further evaluation with an external event monitor. I can arrange for this through my office following discharge. (3) Primary hypertension Assessment & Plan: She tells me that she was previously on medication for hypertension and then discontinued this medication. However, it appears as though she is taking low-dose hydrochlorothiazide at home. Her blood pressures have been intermittently elevated here in the hospital. This will need to be followed after discharge. (4) Morbid obesity Assessment & Plan: She needs to work on weight loss. If she cannot lose a significant amount of weight over the next 6-12 months, then I would consider referring her for a bariatric surgical consultation. DANY BROCK JR, MD Mar 09, 2021 15:45
[2021-03-09 16:57] VITALS: BP 132/81
--- NOTE | 2021-03-09 17:11 | NUCLEAR STRESS TEST ---
REGADENOSON NUCLEAR STRESS Date of procedure: 03/09/2021. Primary care provider: Cain Cooley MD Admitting physician: Marcia Ferguson DO. INDICATION: Abnormal troponin. BASELINE ELECTROCARDIOGRAM: Sinus rhythm with borderline low voltages in diffuse leads. STRESS TEST PROCEDURE: The patient was administered 0.4 mg of intravenous Regadenoson. The resting heart rate was 83 bpm and the peak heart rate was 128 bpm. The resting blood pressure was 145/80 mmHg and the minimum blood pressure was 141/81 mmHg. This represents a normal heart rate and a normal blood pressure response to Regadenoson. The test was stopped due to the protocol. There was no chest discomfort during the test. There were no arrhythmias during the test. There were no significant stress induced electrocardiogram changes. NUCLEAR PROCEDURE: The patient was administered 10.3 mCi of intravenous technetium 99m Tetrofosmin at rest for the rest images. The patient was subsequently administered 30.9 mCi of intravenous technetium 99m Tetrofosmin at peak stress for the stress images. Following an appropriate wait after each injection, imaging was obtained. The images were subsequently processed and reformatted in the usual views. Gated imaging was obtained. The image quality was adequate with some degree of gastrointestinal attenuation artifact. CT attenuation correction was used as a adjunct to standard imaging. Both the corrected and uncorrected images were reviewed for interpretation. NUCLEAR RESULTS: There was normal myocardial perfusion in all segments without evidence of infarction or ischemia. There was normal left ventricular chamber size with an end-diastolic volume of 65 mL and an end-systolic volume of 13 mL. There was no evidence of transient ischemic dilatation. The TID ratio was 0.90. There was normal wall motion in all segments with a calculated ejection fraction of 80%. IMPRESSION: 1. Normal heart rate and blood pressure response to regadenoson. 2. There was no chest discomfort, arrhythmias, or electrocardiogram changes during the test. 3. There was normal myocardial perfusion in all segments without evidence of infarction or ischemia. 4. There was normal wall motion in all segments with a calculated ejection fraction of 80%. Certain portions of this document may have been dictated utilizing voice recognition technology. Inherent to this technology, typographical and gr ammatical errors may exist. As much as I am diligent to identify and correct these mistakes, some errors may remain in the document. DANY BROCK JR, MD Mar 09, 2021 17:11
--- NOTE | 2021-03-09 17:43 | Discharge Summary ---
Discharge Summary Hospital Course Was the Problem List Reviewed?: Yes Problems/Dx: (1) Elevated troponin I level Status: Acute (2) Syncope and collapse Status: Acute (3) Primary hypertension (4) Morbid obesity Hospital Course Date of Admission: Mar 08, 2021 at 16:25 Admission Diagnosis : Family Physician/Provider: Cain Cooley MD Date of Discharge: 03/09/21 Discharge Diagnosis: Syncope, elevated troponin without evidence of acute co ronary syndrome or non-STEMI with normal echo and normal stress test Hospital Course: Pt doing pretty well Stress test scheduled for today [facility] because she is NPO No other chest pain Patient short hospital course after she was admitted after syncopal episode with COVID-19 with elevated troponin so she underwent echo and stress test by Dr. Gill and no evidence of any non-STEMI so the elevated troponin was from demand stress from COVID-19 pneumonia and was deemed stable for discharge. Labs and Pending Lab Test: Laboratory Tests 03/08/21 19:08: Troponin I < 0.028 03/09/21 06:10: White Blood Count 6.0, Red Blood Count 4.36, Hemoglobin 13.1, Hematocrit 40, Mean Corpuscular Volume 91, Mean Corpuscular Hemoglobin 30, Mean Corpuscular Hemoglobin Concent 33, Red Cell Distribution Width 14.2, Platelet Count 148, Mean Platelet Volume 11.9, Immature Granulocyte % (Auto) 0, Neutrophils (%) (Auto) 67, Lymphocytes (%) (Auto) 23, Monocytes (%) (Auto) 10, Eosinophils (%) (Auto) 0, Basophils (%) (Auto) 0, Neutrophils # (Auto) 4.0, Lymphocytes # (Auto) 1.3, Monocytes # (Auto) 0.6, Eosinophils # (Auto) 0.0, Basophils # (Auto) 0.0, Immature Granulocyte # (Auto) 0.0, Sodium Level 140, Potassium Level 3.2L, Chloride Level 110H, Carbon Dioxide Level 19L, Anion Gap 11, Blood Urea Nitrogen 21H, Creatinine 0.85, Estimat Glomerular Filtration Rate 67, BUN/Creatinine Ratio 25, Glucose Level 104, Calcium Level 8.3L, Corrected Calcium 8.8, Total Bilirubin 0.4, Aspartate Amino Transf (AST/SGOT) 60H, Alanine Aminotransferase (ALT/SGPT) 47, Alkaline Phosphatase 211H, Total Protein 7.0, Albumin 3.4, Triglycerides Level 85, Cholesterol Level 127, LDL Cholesterol Direct 71, VLDL Cholesterol 17, HDL Cholesterol 37L Microbiology 03/08/21 Blood Culture - Preliminary, Resulted No growth Home Meds Active Reported Ibuprofen 200 Mg Capsule 600-800 Mg PO Q8H PRN Euthyrox (Levothyroxine Sodium) 100 Mcg Tablet 100 Mcg PO DAILY Gabapentin 100 Mg Capsule 100 Mg PO TID Hydrochlorothiazide 12.5 Mg Tablet 12.5 Mg PO DAILY Assessment/Pt Instructions PCP in 2 weeks Discharge Planning: <30 minutes discharge planning Discharge Instructions Discharge Diet: No Restrictions Discharge Physical Examination Vital Signs Vital Signs Date Time Temp Pulse Resp B/P (MAP) Pulse Ox O2 Delivery O2 Flow Rate FiO2 03/09/21 16:57 37.3 86 20 132/81 (98) 94 Room Air General Appearance: No Apparent Distress, WD/WN, Chronically ill, Obese Allergies: Coded Allergies: No Known Drug Allergies (Unverified , 10/20/19) Discharge Summary Date of Admission Mar 08, 2021 at 16:25 Date of Discharge Discharge Date: Mar 09, 2021 Admission Diagnosis Assessment: Syncope Recent COVID-19 status post antibiotic infusion Non-ST elevation [place] Elevated BMI 47 Hypertension Plan: Supportive care Cardiology consultation Lovenox Aspirin Check lipid and a.m. Discharge Diagnosis (1) Elevated troponin I level Status: Acute Assessment & Plan: Her troponin level at the outside facility was elevated but her troponin level done in our facility was undetectable. Our troponin assay here is slightly more sensitive and specific and given that this was undetectable, I suspect the value from the outside facility may have been a spurious result. I do not believe this represents an acute myocardial infarction. She was not having any anginal symptoms. Her stress test was normal. No additional cardiac testing is indicated for this mild laboratory abnormality at this time. (2) Syncope and collapse Status: Acute Assessment & Plan: Exact etiology unclear. This was unheralded. There is no evidence of Rqibw-Veugewiah-Wauwj, Brugada syndrome, or prolonged or short QT on her resting electrocardiogram. Her ejection fraction is normal. Her stress test shows normal myocardial perfusion. There is no family history of syncope or sudden cardiac . We may need to consider further evaluation with an external event monitor. I can arrange for this through my office following discharge. (3) Primary hypertension Assessment & Plan: She tells me that she was previously on medication for hypertension and then discontinued this medication. However, it appears as though she is taking low-dose hydrochlorothiazide at home. Her blood pressures have been intermittently elevated here in the hospital. This will need to be followed after discharge. (4) Morbid obesity Assessment & Plan: She needs to work on weight loss. If she cannot lose a significant amount of weight over the next 6-12 months, then I would consider referring her for a bariatric surgical consultation. YVROSE MERCEDES DO Mar 09, 2021 17:43
[2021-03-09] MEDS ORDERED: NON-FORMULARY MEDICATION 1 EA EA (Ibuprofen 600 MG) PO PRN (17:45)
[2021-03-09] MEDS ORDERED: GABAPENTIN 100 MG (NEURONTIN) CAP PO SCH (21:00)
[2021-03-10] MEDS ORDERED: NON-FORMULARY MEDICATION 1 EA EA (Hydrochlorothiazide 12.5 MG) PO SCH (09:00)
[2021-03-10] MEDS ORDERED: LEVOTHYROXINE 100 MCG (LEVOTHROID) TAB PO SCH (09:00)
== END 2021-03-09 19:00 | disposition home or self-care (01) | DRG 312 ==
LOC: EDUNIT# 12:37 → ER FS 12:40 → 4TH 16:25
PROVIDERS: ADMIT Internal Medicine; ATTEND Internal Medicine
DX: R55 Syncope and collapse (principal); Z68.42 Body mass index [BMI] 45.0-49.9, adult; R77.8 Other specified abnormalities of plasma proteins; E66.01 Morbid (severe) obesity due to excess calories; I10 Essential (primary) hypertension; Z86.16 Personal history of COVID-19; Z87.891 Personal history of nicotine dependence; K21.9 Gastro-esophageal reflux disease without esophagitis; M19.90 Unspecified osteoarthritis, unspecified site; G89.29 Other chronic pain; M54.9 Dorsalgia, unspecified; E03.9 Hypothyroidism, unspecified; F32.A Depression, unspecified
CPT/HCPCS: 36415; 70450; 71275; 78452; 80053; 80061; 81000; 83605; 83880; 84484; 85025; 85379; 85610; 85730; 86141; 87040; 87077; 87088; 87186; 93005; 93017; 93041; 93308; 94640; G0378

== ENCOUNTER 2021-03-20 10:00 | Outpatient (RCR) | payer MEDICARE ==
[~2021-03-20 10:00] MED LIST changes: +GABA-486 PO; +IBUP-2185 PO; +LEVO-130 PO
== END 2021-04-17 | disposition home or self-care (01) ==
LOC: CARD 10:00
PROVIDERS: ATTEND Internal Medicine Cardiovascular Disease
DX: R55 Syncope and collapse (principal)

== ENCOUNTER → 2022-05-28 | Outpatient (CLI) | payer MEDICARE ==
[~2022-05-28] MED LIST changes: +PARO-135 PO; -PARO40TA PO
--- NOTE | 2022-05-28 11:20 | Diagnostic Imaging Report ---
PROCEDURE: MRI right joint upper extremity without contrast. TECHNIQUE: Multiplanar, multisequence non contrast-enhanced MRI of the right upper extremity was accomplished. INDICATION: Right shoulder pain COMPARISON: None FINDINGS: No acute fracture seen in the right shoulder. Alignment is normal. Heterogeneity of the bone marrow is likely from red marrow reconversion. There is a small joint effusion. There is a full-thickness tear of the supraspinatus and infraspinatus tendons, measuring about 3 cm transverse with medial retraction to the dome of the humeral head by about 2.5 cm. There is mild associated muscular atrophy. The subscapularis and teres minor tendons appear intact. The long head of the biceps tendon demonstrates tendinosis at the intra-articular portion, but no tear seen. The right glenoid labrum is suboptimally evaluated in the absence of intra-articular contrast. There does appear to be some degeneration. No significant para labral cyst is seen. The acromion has a curved undersurface with mild subacromial spurring. There is severe degenerative change in the acromioclavicular joint. There is fluid in the subacromial subdeltoid bursa and the subcoracoid bursa. IMPRESSION: 1. Moderate to large full-thickness tear of the supraspinatus and infraspinatus tendons with mild associated muscular atrophy. 2. Tendinosis in the intra-articular long head of the biceps tendon. 3. Severe degenerative changes in the acromioclavicular joint. 4. Small right shoulder joint effusion. Dictated by: Dictated on workstation # [id number]
== END ==
LOC: RAD 09:37
PROVIDERS: ATTEND Family Medicine
DX: M75.101 Unspecified rotator cuff tear or rupture of right shoulder, not specified as traumatic (principal); M62.541 Muscle wasting and atrophy, not elsewhere classified, right hand; M19.011 Primary osteoarthritis, right shoulder; M25.411 Effusion, right shoulder
CPT/HCPCS: 73221

== ENCOUNTER → 2022-06-07 | Outpatient (CLI) | payer MEDICARE | LOC: ORTHO 08:52 | PROVIDERS: ATTEND Orthopaedic Surgery | DX: M19.011 Primary osteoarthritis, right shoulder (principal) | CPT/HCPCS: 20610; G0463 ==

== ENCOUNTER → 2022-11-08 | Outpatient (CLI) | payer MEDICARE ==
--- NOTE | 2022-11-08 11:02 | Diagnostic Imaging Report ---
EXAMINATION: Left shoulder 2 or more views HISTORY: Shoulder pain COMPARISON: None available. FINDINGS: Alignment is normal. Glenohumeral joint is normal. There is mild acromioclavicular osteoarthritis. No fracture or dislocation. IMPRESSION: 1. Mild acromioclavicular osteoarthritis. Dictated by: Dictated on workstation # [id number]
== END ==
LOC: ORTHO 08:59
PROVIDERS: ATTEND Orthopaedic Surgery
DX: M19.012 Primary osteoarthritis, left shoulder (principal)
CPT/HCPCS: 20610; 73030; G0463; 99203

== ENCOUNTER → 2022-12-18 | Outpatient (CLI) | payer MEDICARE ==
[~2022-12-18] VITALS: Ht 160 cm; Wt 122.0 kg
[~2022-12-18] MED LIST changes: +LIDOCAINE 1% INJ 20 ML VIAL INJ ONE; +LIDOCAINE 1% INJ 20 ML VIAL ONE
[2022-12-18 09:47] VITALS: BP 148/81
--- NOTE | 2022-12-18 18:08 | OPERATIVE REPORT ---
DATE OF SERVICE: 12/18/2022 PREOPERATIVE DIAGNOSIS: Syncope. POSTOPERATIVE DIAGNOSIS: Syncope. PROCEDURE: Implantable loop recorder implantation. DESCRIPTION OF PROCEDURE: [facility] Informed consent was obtained for the procedure. The left prepectoral area was prepared and draped in the usual sterile fashion. 1% lidocaine was used for local anesthesia. Tools provided with the [employer] LINQ II Device were used to make a subcutaneous pocket anterior to the 4th intercostal space in which the device was placed and the wound edges were closed using Dermabond and Steri-Strips. The serial number of the device is [id number]. Job ID: [id number] DocumentID: [id number] Dictated Date: 12/18/2022 10:21:51 [employer] Date: 12/18/2022 18:05:00 Dictated By: JN CARRERA MD; SEB; FACP; FACC;
== END ==
LOC: CATH 09:17
PROVIDERS: ATTEND Internal Medicine Cardiovascular Disease
DX: R55 Syncope and collapse (principal); I47.10 Supraventricular tachycardia, unspecified; I47.20 Ventricular tachycardia, unspecified; I12.9 Hypertensive chronic kidney disease with stage 1 through stage 4 chronic kidney disease, or unspecified chronic kidney disease; N18.31 Chronic kidney disease, stage 3a; K27.9 Peptic ulcer, site unspecified, unspecified as acute or chronic, without hemorrhage or perforation; G62.9 Polyneuropathy, unspecified; N93.9 Abnormal uterine and vaginal bleeding, unspecified; E03.9 Hypothyroidism, unspecified; E66.01 Morbid (severe) obesity due to excess calories; Z28.310 Unvaccinated for COVID-19
CPT/HCPCS: 33285; C1764

== ENCOUNTER → 2022-12-28 | Outpatient (CLI) | payer MEDICARE ==
[~2022-12-28] MED LIST changes: +CATHETER FLUSH 10 ML SYR IVP PRN; -LIDOCAINE 1% INJ 20 ML VIAL INJ ONE; -LIDOCAINE 1% INJ 20 ML VIAL ONE; +REGADENOSON 0.4 MG/5 ML SYR IV ONE
[2022-12-28 09:24] VITALS: BP 165/82
== END ==
LOC: CARD 06:52
PROVIDERS: ATTEND Internal Medicine Cardiovascular Disease
DX: R55 Syncope and collapse (principal)
CPT/HCPCS: 78452; 93017; A9502

== ENCOUNTER → 2023-01-09 | Outpatient (CLI) | payer MEDICARE ==
[~2023-01-09] MED LIST changes: -CATHETER FLUSH 10 ML SYR IVP PRN; -REGADENOSON 0.4 MG/5 ML SYR IV ONE
--- NOTE | 2023-01-09 12:06 | Diagnostic Imaging Report ---
HISTORY: Left shoulder pain. COMPARISON: Radiographs from 11/08/2022. TECHNIQUE: Multiplanar, multisequence noncontrast MRI examination of the left shoulder. FINDINGS: No acute fracture is seen in the left shoulder. Alignment appears normal. There is a small left shoulder joint effusion. There is a full-thickness tear of the supraspinatus and infraspinatus tendons, which measures up to 5 cm in width, involving the entire tendons. There is moderate atrophy of the respective musculature. The teres minor tendon appears intact. The subscapularis tendon demonstrates mild tendinosis with low-grade partial tearing. There is no muscular atrophy. The long head of the biceps tendon demonstrates tendinosis and low-grade partial tearing proximally. The glenoid labrum is suboptimally evaluated in the absence of intra-articular contrast. No paralabral cyst is seen. The acromion has a curved undersurface. The coracoclavicular and coracoacromial ligaments are intact. There is severe degenerative change in the acromioclavicular joint. There may be some remodeling of the acromion undersurface from the humeral head. IMPRESSION: 1. Large left rotator cuff tear with atrophy of the supraspinatus and infraspinatus musculature. 2. Tendinosis and low-grade partial tearing of the proximal long head of the biceps tendon. 3. Small left shoulder joint effusion. 4. Severe degenerative change in the acromioclavicular joint. Dictated by: Dictated on workstation # [id number]
== END ==
LOC: RAD 07:15
PROVIDERS: ATTEND Orthopaedic Surgery
DX: M75.122 Complete rotator cuff tear or rupture of left shoulder, not specified as traumatic (principal); M19.012 Primary osteoarthritis, left shoulder; M75.22 Bicipital tendinitis, left shoulder
CPT/HCPCS: 73221

== ENCOUNTER → 2023-02-13 | Outpatient (CLI) | payer MEDICARE | LOC: ORTHO 10:16 | PROVIDERS: ATTEND Orthopaedic Surgery | DX: M19.011 Primary osteoarthritis, right shoulder (principal); M19.012 Primary osteoarthritis, left shoulder | CPT/HCPCS: 20610; G0463; 99213 ==